=== PATIENT | female | born 1945 | race Caucasian/White ===

== ENCOUNTER 2020-04-17 04:48 | Emergency (ER) | payer OTHER ==
[2020-04-17 05:42] LABS: Absolute Lymphocytes (CBC) 1.4 K/uL (0.7-4.9); Hematocrit 33.5 % (36.0-45.0); Lymphocytes % 21.8 % (15.3-44.8); MPV 9.5 fL (7.6-11.3); RBC Red Blood Cell Count 3.53 M/uL (3.86-4.86)
[2020-04-17 05:45] LABS: Protime INR 1.05
[2020-04-17 06:47] LABS: ALT/SGPT 42 U/L (12-78); AST/SGOT 17 U/L (15-37); Albumin 3.4 g/dL (3.4-5.0); Alkaline Phosphatase 88 U/L (45-117); BUN Blood Urea Nitrogen 10 mg/dL (7-18); Bicarbonate 20 mmol/L (21-32); Bilirubin Direct < 0.1 mg/dL (0-0.2); Bilirubin Total 0.3 mg/dL (0.2-1.0); C-Reactive Protein 5.92 mg/L (<3.00); Ferritin 114.9 ng/mL (8-388); Glucose Level 99 mg/dL (74-106); Lipase 33 U/L (73-393); Potassium 3.6 mmol/L (3.5-5.1); Protein, Total 6.8 g/dL (6.4-8.2); Sodium Level 142 mmol/L (136-145); Troponin (Emerg Dept Use Only) 0.02 ng/mL (0.0-0.045)
--- NOTE | 2020-04-17 09:01 | RAD REPORT ---
EXAM DESCRIPTION: Tammie Single View04/17/2020 5:34 am CLINICAL HISTORY: Cough COMPARISON: none FINDINGS: Lungs are mildly hyperaerated Mild appearing interstitial lung opacities probably chronic Heart is mildly enlarged. Blunting of the costophrenic sulci may indicate small pleural effusions or pleural thickening
--- NOTE | 2020-04-17 09:05 | ER ---
Nurse's Notes [facility] Name: Dulce Maria He Age: 74 yrs Sex: Female : 1945 Arrival Date: 04/17/2020 Time: 04:48 Bed 4 Private MD: Diagnosis: Dyspnea;Other specified heart block-third degree Presentation: 04/17 05:24 Chief complaint: Patient states: "for a week now I have had shortness of breath with jd3 exertion along with my heart rate that has been in the 40s and even dropped to 39 once. It only happens when I try to get up and move, but when I do, I get a heaviness in my chest and I get short of breath. Coronavirus screen: Surgical mask placed on patient. Patient moved to private room, placed in contact and droplet isolation with eye protection until further assessment. Patient denies a cough. Patient reports shortness of breath or difficulty breathing. Patient denies measured and/or subjective temperature greater than 100.4F prior to today's visit. Patient denies travel on a cruise ship or to a country the [facility] currently lists as an affected area. Patient denies contact with known and/or suspected case of COVID-19. Ebola Screen: Patient negative for fever greater than or equal to 101.5 degrees Fahrenheit, and additional compatible Ebola Virus Disease symptoms. Initial Sepsis Screen: Does the patient meet any 2 criteria? No. Patient's initial sepsis screen is negative. Does the patient have a suspected source of infection? No. Patient's initial sepsis screen is negative. Risk Assessment: Do you want to hurt yourself or someone else? Patient reports no desire to harm self or others. Onset of symptoms was April 10, 2020. 05:24 Method Of Arrival: Wheelchair jd3 05:24 Acuity: ARINA 2 jd3 Historical: - Allergies: 05:29 No Known Allergies; jd3 - Home Meds: 05:29 Prilosec Oral [Active]; jd3 - PMHx: 05:29 GERD; jd3 - PSHx: 05:29 None; jd3 - Immunization history:: Adult Immunizations unknown. - Social history:: Smoking status: Patient denies any tobacco usage or history of. Screenin:32 Abuse screen: Denies threats or abuse. Nutritional screening: No deficits noted. jd3 Tuberculosis screening: No symptoms or risk factors identified. Fall Risk IV access (20 points). Ambulatory Aid- None/Bed Rest/Nurse Assist (0 pts). Gait- Weak (10 pts.). Mental Status- Oriented to own ability (0 pts). Total Medina Fall Scale indicates Low Risk Score (25-44 pts). Fall prevention measures have been instituted. Side Rails Up X 2 Placed close to Nursing Station Frequent Obs/Assesments occuring. Assessment: 05:28 Reassessment: Kelle (Sister) [phone]. ea 05:31 General: Appears in no apparent distress. comfortable, Behavior is calm, cooperative, jd3 appropriate for age. Pain: Denies pain. Neuro: Level of Consciousness is awake, alert, obeys commands, Oriented to person, place, time, situation. Cardiovascular: Reports shortness of breath, Denies chest pain, Capillary refill < 3 seconds Patient's skin is warm and dry. Rhythm is sinus bradycardia. Respiratory: Reports shortness of breath on exertion Airway is patent Respiratory effort is even, unlabored, Respiratory pattern is regular, symmetrical, Denies cough. GI: No signs and/or symptoms were reported involving the gastrointestinal system. Patient currently denies constipation, diarrhea, nausea, vomiting. : No signs and/or symptoms were reported regarding the genitourinary system. EENT: No signs and/or symptoms were reported regarding the EENT system. Derm: Skin is intact, Skin is dry, Skin is normal, Skin temperature is warm. Musculoskeletal: Circulation, motion, and sensation intact. Range of motion: intact in all extremities. 06:16 Reassessment: Patient appears in no apparent distress at this time. Patient and/or mg2 family updated on plan of care and expected duration. Pain level reassessed. Patient is alert, oriented x 3, equal unlabored respirations, skin warm/dry/pink. 08:04 Reassessment: Patient appears in no apparent distress at this time. Patient and/or ph family updated on plan of care and expected duration. Pain level reassessed. Patient is alert, oriented x 3, equal unlabored respirations, skin warm/dry/pink. Licensed Journeyman Electrician at bedside to speak w/ pt, pt to be transferred for possible pacemaker placement, pt c/o dry mouth. 09:11 Reassessment: Patient appears in no apparent distress at this time. Patient and/or ph family updated on plan of care and expected duration. Pain level reassessed. Patient is alert, oriented x 3, equal unlabored respirations, skin warm/dry/pink. 10:15 Reassessment: Patient appears in no apparent distress at this time. Patient and/or ph family updated on plan of care and expected duration. Pain level reassessed. Patient is alert, oriented x 3, equal unlabored respirations, skin warm/dry/pink. Report given to Mary Alice EMT-P, pt transferred by EMS to [facility]. Vital Signs: 05:29 BP 101 / 80; Pulse 41; Resp 18 S; Temp 97.6(O); Pulse Ox 99% on R/A; Weight 65.77 kg jd3 (R); Height 5 ft. 6 in. (167.64 cm) (R); Pain 0/10; 06:16 BP 158 / 52; Pulse 40; Resp 18; Pulse Ox 100% on R/A; mg2 07:27 BP 165 / 52; Pulse 40; Pulse Ox 96% on R/A; hb 08:05 BP 164 / 54; Pulse 38; Resp 18; Pulse Ox 98% on R/A; ph 09:12 BP 148 / 86; Pulse 38; Resp 18; Pulse Ox 98% on R/A; ph 10:16 BP 151 / 68; Pulse 37; Resp 18; Temp 97.8; Pulse Ox 97% on R/A; ph 05:29 Body Mass Index 23.40 (65.77 kg, 167.64 cm) jd3 ED Course: 04:48 Patient arrived in ED. ds1 04:51 Amrit Ahuja MD is Attending Physician. tw4 04:54 Jose Tate RN is Primary Nurse. jd3 05:25 Inserted saline lock: 20 gauge in right wrist, using aseptic technique. Blood jd3 collected. placed by Manav CAPPS. 05:28 Triage completed. jd3 05:30 Arm band placed on. EKG completed in triage. Results shown to . jd3 05:33 Patient has correct armband on for positive identification. Placed in gown. Bed in low jd3 position. Call light in reach. Side rails up X2. branch store manager on. Pulse ox on. NIBP on. 05:34 CXR XRAY In Process Unspecified. EDMS 08:07 No provider procedures requiring assistance completed. Patient transferred, IV remains ph in place. 08:09 transfer initiated with [facility]. em1 08:31 Transfer attempted with [facility] by Dr. Pillai with no success. em1 08:38 Attending Physician role handed off by Amrit Ahuja MD cha 08:38 Martinez Pillai MD is Attending Physician. [facility] Administered Medications: No medications were administered Outcome: 09:05 ER care complete, transfer ordered by . [facility] 10:17 Transferred by ground EMS [place]. to [facility], Transfer form ph completed. X-rays sent w/ patient. 10:17 Condition: stable 10:18 Patient left the ED. Signatures: Dispatcher [employer] EDCO Martinez Pillai MD MD cha WeberAnia ds1 Babatunde, Clinton em1 Maribel Dash RN RN ph Baxter, Heather RN Belen Maynard RN RN ea Davies, Jonathon, RN RN jd3 Wadley, Terrence, MD MD tw4 Manav Martinez RN RN mg2 Corrections: (The following items were deleted from the chart) 05:29 05:24 Onset of symptoms was April 17, 2020 [email or web address]
--- NOTE | 2020-04-17 09:05 | EDPHYS ---
Physician Documentation [facility] Name: Dulce Maria He Age: 74 yrs Sex: Female : 1945 Arrival Date: 04/17/2020 Time: 04:48 Bed 4 Private MD: ED Physician Martinez Pillai HPI: 04/17 08:04 This 74 yrs old Female presents to ER via Wheelchair with complaints of tw4 Shortness Of Breath, Irregular Pulse. 08:04 The patient has shortness of breath with light activity. Duration: The symptoms are tw4 continuous, and are steadily getting worse. The patient's shortness of breath is aggravated by exertion. Associated signs and symptoms: The patient has no apparent associated signs or symptoms. Severity of symptoms: At their worst the symptoms were moderate in the emergency department the symptoms have resolved. yesterday, The patient has not experienced similar symptoms in the past. 08:05 Onset: The symptoms/episode began/occurred yesterday. tw4 Historical: - Allergies: 05:29 No Known Allergies; jd3 - Home Meds: 05:29 Prilosec Oral [Active]; jd3 - PMHx: 05:29 GERD; jd3 - PSHx: 05:29 None; jd3 - Immunization history:: Adult Immunizations unknown. - Social history:: Smoking status: Patient denies any tobacco usage or history of. ROS: 08:05 Constitutional: Negative for fever, chills, and weight loss, Eyes: Negative for injury, tw4 pain, redness, and discharge, Cardiovascular: Negative for chest pain, palpitations, and edema, Abdomen/GI: Negative for abdominal pain, nausea, vomiting, diarrhea, and constipation, Back: Negative for injury and pain, MS/Extremity: Negative for injury and deformity, Skin: Negative for injury, rash, and discoloration, Neuro: Negative for headache, weakness, numbness, tingling, and seizure. 08:05 Respiratory: Positive for dyspnea on exertion, shortness of breath, Negative for cough, hemoptysis, orthopnea, pleurisy, wheezing. Exam: 08:05 Constitutional: This is a well developed, well nourished patient who is awake, alert, tw4 and in no acute distress. Head/Face: Normocephalic, atraumatic. Chest/axilla: Normal chest wall appearance and motion. Nontender with no deformity. No lesions are appreciated. 08:05 Respiratory: Lungs have equal breath sounds bilaterally, clear to auscultation and percussion. No rales, rhonchi or wheezes noted. No increased work of breathing, no retractions or nasal flaring. Abdomen/GI: Soft, non-tender, with normal bowel sounds. No distension or tympany. No guarding or rebound. No evidence of tenderness throughout. Back: No spinal tenderness. No costovertebral tenderness. Full range of motion. Skin: Warm, dry with normal turgor. Normal color with no rashes, no lesions, and no evidence of cellulitis. MS/ Extremity: Pulses equal, no cyanosis. Neurovascular intact. Full, normal range of motion. Neuro: Awake and alert, GCS 15, oriented to person, place, time, and situation. Cranial nerves II-XII grossly intact. Motor strength 5/5 in all extremities. Sensory grossly intact. Cerebellar exam normal. Normal gait. 08:05 Cardiovascular: Rate: bradycardic, actual rate is 38 bpm, Rhythm: regular. Vital Signs: 05:29 BP 101 / 80; Pulse 41; Resp 18 S; Temp 97.6(O); Pulse Ox 99% on R/A; Weight 65.77 kg jd3 (R); Height 5 ft. 6 in. (167.64 cm) (R); Pain 0/10; 06:16 BP 158 / 52; Pulse 40; Resp 18; Pulse Ox 100% on R/A; mg2 07:27 BP 165 / 52; Pulse 40; Pulse Ox 96% on R/A; hb 08:05 BP 164 / 54; Pulse 38; Resp 18; Pulse Ox 98% on R/A; ph 09:12 BP 148 / 86; Pulse 38; Resp 18; Pulse Ox 98% on R/A; ph 10:16 BP 151 / 68; Pulse 37; Resp 18; Temp 97.8; Pulse Ox 97% on R/A; ph 05:29 Body Mass Index 23.40 (65.77 kg, 167.64 cm) jd3 MDM: 04:51 Patient medically screened. tw4 08:52 Differential diagnosis: Anemia CHF exacerbation, Myocardial Infarction pulmonary edema, yoana Unstable Angina. Antibiotic administration: Not indicated. The patient's Wells Deep Vein Thrombosis Score was calculated as follows: Total Score: 0-2 Pts- Low Risk. The patient's pulmonary embolism risk score was calculated as follows: Total Score: 0-2 points. This patient was found to be at low risk for a pulmonary embolism by using the Well's assessment criteria. Immunization status: Pneumococcal vaccine: Influenza vaccine: Data reviewed: vital signs, nurses notes, lab test result(s), EKG, radiologic studies, plain films. Data interpreted: tie sawyer: rate is 38 beats/min, Pulse oximetry: on room air is 98 %. Test interpretation: by ED physician or midlevel provider: ECG, plain radiologic studies. Physician consultation: David Lal MD after a discussion of the case, a recommendation for transfer for higher level of care is made. ED course: patient stable, blood pressure 164/54, alert and oriented x4. 04/17 04:53 Order name: Blood Culture Adult (2) 04/17 04:53 Order name: BMP; Complete Time: 07:23 04/17 07:23 Interpretation: Normal except: CL 113; GFR 70; CO2 20. 04/17 04:53 Order name: C-Reactive Protein; Complete Time: 07:23 04/17 07:23 Interpretation: Normal except: C-REACTIVE PROT 5.92. 04/17 04:53 Order name: CBC with Diff; Complete Time: 07:23 04/17 07:23 Interpretation: Normal except: RBC 3.53; HGB 11.4; HCT 33.5. 04/17 04:53 Order name: COVID-19 04/17 04:53 Order name: Ferritin; Complete Time: 07:23 04/17 07:24 Interpretation: Within normal limits: ABY 114.9. 04/17 04:53 Order name: Flu; Complete Time: 07:23 04/17 07:24 Interpretation: Within normal limits. 04/17 04:53 Order name: Lactate; Complete Time: 07:23 04/17 07:25 Interpretation: Within normal limits: LAC 1.3. 04/17 04:53 Order name: LFT's; Complete Time: 07:23 04/17 07:24 Interpretation: Normal except: A/G 1.0. 04/17 04:53 Order name: Lipase; Complete Time: 07:23 04/17 07:24 Interpretation: Normal except: LIP 33. 04/17 04:53 Order name: Procalcitonin; Complete Time: 07:23 04/17 07:25 Interpretation: Within normal limits: Procalcitonin < 0.05. 04/17 04:53 Order name: PT-INR; Complete Time: 07:23 04/17 07:25 Interpretation: Within normal limits: PT 12.4. 04/17 04:53 Order name: Ptt, Activated; Complete Time: 07:23 04/17 07:25 Interpretation: Within normal limits: PTT 34.4. 04/17 04:53 Order name: Strep; Complete Time: 07:23 04/17 07:25 Interpretation: Within normal limits. 04/17 04:53 Order name: Troponin (emerg Dept Use Only); Complete Time: 07:23 04/17 07:25 Interpretation: Within normal limits: TROPED 0.02. 04/17 04:53 Order name: CXR XRAY; Complete Time: 09:17 04/17 04:53 Order name: EKG; Complete Time: 04:54 04/17 04:53 Order name: Cardiac monitoring; Complete Time: 05:24 04/17 04:53 Order name: Document PUI#; Complete Time: 05:24 04/17 04:53 Order name: Droplet/Contact Precautions; Complete Time: 04:56 04/17 04:53 Order name: EKG - Nurse/Tech; Complete Time: 05:24 04/17 04:53 Order name: IV Start; Complete Time: 05:24 04/17 04:53 Order name: Labs collected and sent; Complete Time: 05:24 04/17 04:53 Order name: Notify Health Dept [phone]/ ; Complete Time: 04:56 04/17 04:53 Order name: O2 Per Protocol; Complete Time: 04:56 04/17 04:53 Order name: O2 Sat Monitoring; Complete Time: 04:56 04/17 04:54 Order name: Blood Culture EDMS 04/17 05:57 Order name: Throat Culture [facility] 04/17 09:54 Order name: NPO; Complete Time: 10:02 [facility] EC:15 Rate is 40 beats/min. Rhythm is regular. QRS Homer is Normal. DC interval is normal. QRS tw4 interval is normal. QT interval is normal. No Q waves. T waves are Normal. No ST changes noted. Clinical impression: Sinus bradycardia. Interpreted by me. Reviewed by me. 08:05 Rate is 38 beats/min. Rhythm is regular. QRS Homer is Normal. DC interval is prolonged. tw4 QRS interval is normal. QT interval is normal. No Q waves. T waves are Normal. No ST changes noted. Clinical impression: 3rd degree heart block. Interpreted by me. Reviewed by me. Administered Medications: No medications were administered Disposition: 04/17/20 09:05 Transfer ordered to Other Acute Care Facility. Diagnosis are Dyspnea, Other specified heart block - third degree. - Reason for transfer: Higher level of care. - Accepting physician is cardio ccu. - Condition is Fair. - Problem is new. - Symptoms have improved. Signatures: Dispatcher [employer] Martinez Montanez MD MD cha Hall, Patricia, RN RN Jose Pressley RN RN Amrit Ibarra MD MD tw4 Corrections: (The following items were deleted from the chart) 05:43 04:53 Maloney ordered. tw4 jd3 10:18 09:05 04/17/2020 09:05 Transfer ordered to Other Acute Care Facility. Diagnosis is ph Dyspnea; Other specified heart block - third degree. Reason for transfer: Higher level of care. Accepting physician is cardio ccu. Condition is Fair. Problem is new. Symptoms have improved. yoana
[2020-04-17 10:29] VITALS: BP 151/68; TEMP 97.8; O2SAT 97
--- NOTE | 2020-04-17 19:58 | CON ---
Date of Consultation: 04/17/2020 Reason For Consultation: Heart block and shortness of breath. History Of Present Illness: A 74-year-old female with no medical history, presented with shortness o f breath that has been worsening over the past week with low energy, is not able to walk in from room to room without shortness of breath. No orthopnea. No extremity edema. No chest pain. No other c omplaints. Past Medical History: None. Medications: None. Allergies: NO KNOWN DRUG ALLERGIES. Social History: Does not smoke or drink. Does not use drugs. Family History: No premature coronary artery disease or cancer. Review of Systems: All systems reviewed were negative except for mentioned in the HPI. Physical Examination: Vital Signs: Temperature is 97.8, heart rate 37, breathing 18, blood pressure is 148/86, saturating 98% on room air. General: Pleasant elderly female, in no apparent distress. Head and Neck: Pupils are equal, react to light. Intact eye movements. No JVD. No cervical lympha denopathy. Neck supple. Thyroid is not enlarged. Lungs: Clear to auscultation bilaterally. No rhonchi, rales, crackles. No accessory muscle use. Heart: Regular rate and rhythm. No extra sounds. Abdomen: Soft, nontender. Bowel sounds positive. No organomegaly. No masses or hernia. No rigidi ty or rebound. Extremities: No edema, clubbing, cyanosis. Intact pulses. Skin: No rash noted. Neurologic: Alert, awake, oriented x3. No acute focal deficits appreciated. Investigations: EKG showed complete heart block with a rate of 37 and with exertion heart rate would not improve. Labs otherwise was reviewed. Assessment And Recommendation: Third-degree complete heart block, likely responsible for her symptom s. She is hemodynamically stable. No need for transcutaneous pacing. However, recommend transfer t [facility] for evaluation for permanent pacemaker implantation. Obtain echocardiogram and serial sets of cardiac enzymes. I appreciate the courtesy of this consultation. /SAVANNAH Voice ID: [id number] Report ID: [id number]
== END 2020-04-17 10:18 ==
LOC: ER 04:48
DX: I44.2 Atrioventricular block, complete (principal); R06.00 Dyspnea, unspecified; K21.9 Gastro-esophageal reflux disease without esophagitis; Z11.59 Encounter for screening for other viral diseases
CPT/HCPCS: 93005 ×2; 87040 ×2; 87070; 85025; 80048; 36415; 85610; 80076; 87081; 83605; 85730; 84484; 82728; 83690; 84145; 86140; 87804 ×2; 71045; 99285; U0002

== ENCOUNTER 2024-12-09 03:22 | Inpatient (IN) | payer OTHER ==
[2024-12-09] MEDS ORDERED: ALBUTEROL 2.5 MG/3 ML NEB SOL ONE ×3 (03:36→06:01)
[2024-12-09] MEDS ORDERED: IPRATROPIUM BROM 0.5MG/2.5ML ONE ×4 (03:36→14:17)
[2024-12-09 04:15] LABS: D-Dimer 0.826 FEUug/mL (0-0.500); PT Prothrombin Time 11.7 SECONDS (10.0-13.0); PTT, Activated Partial Thromb 31.2 SECONDS (24.3-36.9); Protime INR 1.03
[2024-12-09 04:21] LABS: ALT/SGPT 17 U/L (13-56); Absolute Basophils 0.1 K/uL (0-0.5); Absolute Eosinophils 0.5 K/uL (0-0.5); Absolute Lymphocytes (CBC) 1.5 K/uL (0.7-4.9); Absolute Monocytes 1.1 K/uL (0.1-1.3); Absolute Neutrophil 8.6 K/uL (1.8-8.0); Albumin 3.7 g/dL (3.4-5.0); Albumin/Globulin Ratio 0.9 (1.1-1.8); Alkaline Phosphatase 99 U/L (45-117); BUN Blood Urea Nitrogen 11 mg/dL (7-18); Basophils % 0.8 % (0-1.3); Bicarbonate 25 mEq/L (21-32); Bilirubin Total 0.3 mg/dL (0.2-1.0); Creatine Phosphokinase 91 U/L (26-192); Eosinophils % 3.9 % (0-4.4); Globulin 4.1 g/dL (2.3-3.5); Glomerular Filtration Rate 89 ml/min (=/>90); Glucose Level 105 mg/dL (74-106); Hematocrit 39.9 % (36.0-45.0); Hemoglobin 13.5 g/dL (12.0-15.0); Lipase 17 U/L (13-75); Lymphocytes % 12.6 % (15.3-44.8); MCH 31.8 pg (27.0-35.0); MCHC 33.9 g/dL (32.0-36.0); MCV 93.9 fL (80-100); MPV 7.5 fL (7.6-11.3); Magnesium 1.9 mg/dL (1.6-2.4); Monocytes % 9.1 % (3.3-12.3); NT PRO-BNP 152 pg/mL (<450); Neutrophils % 73.6 % (41.7-73.7); Nucleated Red Blood Cells % 0.1 % (0-0); Platelets 334 thou/uL (152-406); Protein, Total 7.8 g/dL (6.4-8.2); RBC Red Blood Cell Count 4.25 M/uL (3.86-4.86); Red Cell Distribution Width 13.4 % (12.1-15.2); Sodium Level 136 mEq/L (136-145); Troponin High Sensitivity 10.3 pg/mL (<58.9)
[2024-12-09 04:25] LABS: Blood O2 Saturation 91.5 % (92-98.5)
[2024-12-09 04:25] LABS: AST/SGOT < 10 U/L (15-37); Bilirubin Direct < 0.2 mg/dL (0-0.2); Bilirubin Indirect, Calculated 0.1 mg/dL (0.2-0.8)
[2024-12-09 04:26] LABS: Arterial Blood Carboxyhemoglob 1.1 % (0-1.5); Blood Gas Oxyhemoglobin 88.8 % (94-97); Blood Gas THB 13.8 g/dl (12-18)
[2024-12-09] MEDS ORDERED: METHYLPREDNISOLONE 125 MG INJ ONE (04:26)
[2024-12-09] MEDS ORDERED: Magnesium Sulfate 2gm IVPB 2 G/50 ML BAG IV ONE (04:26)
[2024-12-09] MEDS ORDERED: GUAIFENESIN/DM 5 ML UCUP ONE (04:26)
--- NOTE | 2024-12-09 05:46 | RAD REPORT ---
EXAM: XR Chest, 1 View CLINICAL HISTORY: The patient is 79 years old and is Female; DYSPNEA TECHNIQUE: Frontal view of the chest. COMPARISON: No relevant prior studies available. FINDINGS: Lungs: Peribronchial thickening. Hazy opacification of the medial right lung base. Left basilar a telectasis. Pleural space: Unremarkable. No pneumothorax. Heart: Unremarkable. Mediastinum: Unremarkable. Normal mediastinal contour. Bones/joints: No acute findings. Tubes, lines and devices: Left-sided pacemaker. IMPRESSION: Peribronchial thickening. Hazy opacification of the medial right lung base. Left basilar atelectasi s. Electronically signed by: Casey Hudson MD 12/09/2024 05:13 AM [facility] 8 Due to temporary technical issues with the PACS/[employer] [place] reporting system, reports are being jolynn d by the in-house radiologist without review as a courtesy to ensure prompt reporting the interpreting radiologist is fully responsible for the content of the report. Transcribed Date/Time: 12/09/2024 5:46 AM
[2024-12-09 05:49] LABS: Influenza A Ag Negative; Influenza B Ag Negative; SARS-CoV-2 Antigen Rapid Res Negative (Negative)
[2024-12-09] MEDS ORDERED: GUAIFENESIN/CODEINE 5ML UCUP ONE (06:02)
--- NOTE | 2024-12-09 07:29 | EDPHYS ---
Physician Documentation [facility] Name: Dulce Maria He Age: 79 yrs Sex: Female : 1945 Arrival Date: 12/09/2024 Time: 03:22 Bed 7 Private MD: ED Physician Koffi Pavon HPI: 12/09 03:40 This 79 yrs old Female presents to ER via Unassigned with complaints of sp4 Shortness Of Breath. 07:18 Patient is a very pleasant 79-year-old female comes in with worsening shortness of sp4 breath and wheezing.. Historical: - Allergies: 03:46 No Known Allergies; vc1 - PMHx: 03:46 GERD; hiatel hernia (GERD); vc1 - PSHx: 03:46 Pacer; vc1 - Immunization history:: Client reports receiving the 2nd dose of the Covid vaccine, Flu vaccine is up to date. - Infectious Disease History:: Denies. - Social history:: Smoking status: Patient denies any tobacco usage or history of. - Family history:: not pertinent. ROS: 07:18 Constitutional: Negative for fever, chills, and weight loss, positive dyspnea, positive sp4 wheezing, positive cough 07:18 All other systems are negative, Exam: 07:18 Constitutional: This is a well developed, well nourished patient who is awake, alert, sp4 ill-appearing but nontoxic Head/Face: Normocephalic, atraumatic. Eyes: Pupils equal round and reactive to light, extra-ocular motions intact. Lids and lashes normal. Conjunctiva and sclera are not injected. Cornea within normal limits. Periorbital areas with no swelling, redness, or edema. ENT: Nares patent. No nasal discharge, no septal abnormalities noted. Tympanic membranes are normal and external auditory canals are clear. Oropharynx with no redness, swelling, or masses, exudates, or evidence of obstruction, uvula midline. Mucous membranes moist. Neck: Trachea midline, no thyromegaly or masses palpated, and no cervical lymphadenopathy. Supple, full range of motion without nuchal rigidity, or vertebral point tenderness. Chest/axilla: Normal chest wall appearance and motion. Nontender with no deformity. No lesions are appreciated. Cardiovascular: Regular rate and rhythm with a normal S1 and S2. No gallops, murmurs, or rubs. Normal PMI, no JVD. No pulse deficits. Respiratory: Lungs have equal breath sounds bilaterally, bilateral expiratory wheezing, bilateral inspiratory wheezing, dyspnea and tachypnea Abdomen/GI: Soft, with normal bowel sounds. No distension or tympany. No guarding or rebound. No evidence of tenderness throughout. Back: No spinal tenderness. No costovertebral tenderness. Skin: Warm, dry with normal turgor. Normal color with no rashes, no lesions, and no evidence of cellulitis. MS/ Extremity: Pulses equal, no cyanosis. Neurovascular intact. Full, normal range of motion. Neuro: Awake and alert, GCS 15, oriented to person, place, time, and situation. Cranial nerves II-XII grossly intact. Motor strength 5/5 in all extremities. Sensory grossly intact. Psych: Awake, alert, with orientation to person, place and time. Behavior, mood, and affect are within normal limits 07:18 ECG was reviewed by the Attending Phys[place] 0403 paced rhythm rate 107 periodic PVCs Vital Signs: 03:43 BP 178 / 80; Pulse 107; Resp 16; Temp 98.2; Pulse Ox 89% on R/A; Weight 59.5 kg; Height vc1 5 ft. 3 in. ; Pain 0/10; 04:00 BP 151 / 75; Pulse 104; Resp 22; Pulse Ox 94% on R/A; al5 04:30 BP 164 / 77; Pulse 102; Resp 22; Pulse Ox 93% on R/A; al5 05:00 BP 134 / 64; Pulse 101; Resp 18; Pulse Ox 98% on 2 lpm NC; al5 05:30 BP 144 / 60; Pulse 96; Resp 18; Pulse Ox 96% on 2 lpm NC; al5 06:00 BP 149 / 59; Pulse 94; Resp 18; Pulse Ox 96% on R/A; al5 06:30 BP 147 / 55; Pulse 103; Resp 20; Pulse Ox 100% on R/A; al5 08:30 BP 127 / 55; Pulse 98; Resp 16; Pulse Ox 100% on 2 lpm NC; db 09:00 BP 134 / 63; Pulse 109; Resp 20; Pulse Ox 95% on R/A; db 03:43 Body Mass Index 23.24 (59.50 kg, 160.02 cm) vc1 03:43 Pain Scale: Adult vc1 Rg Coma Score: 07:18 Eye Response: spontaneous(4). Motor Response: obeys commands(6). Verbal Response: sp4 oriented(5). Total: 15. MDM: 03:42 Medical Screening Exam initiated sp4 07:25 Differential diagnosis: Anemia Anxiety Reaction asthma, Bronchitis CHF exacerbation, sp4 Chronic Obstructive Pulmonary Disease pneumonia, Pneumothorax. Data reviewed: vital signs, nurses notes, lab test result(s), EKG, radiologic studies, CT scan, plain films. Consideration of Admission/Observation Patient was admitted/placed on observation. Escalation of care including admission/observation considered. Management of patient was discussed with the following: Hospitalist: Admit Team . ED course: Patient stable for admission at this time.. ED course: EXAM: XR Chest, 1 View CLINICAL HISTORY: The patient is 79 years old and is Female; DYSPNEA TECHNIQUE: Frontal view of the chest. COMPARISON: No relevant prior studies available. FINDINGS: Lungs: Peribronchial thickening. Hazy opacification of the medial right lung base. Left basilar atelectasis. Pleural space: Unremarkable. No pneumothorax. Heart: Unremarkable. Mediastinum: Unremarkable. Normal mediastinal contour. Bones/joints: No acute findings. Tubes, lines and devices: Left-sided pacemaker. IMPRESSION: Peribronchial thickening. Hazy opacification of the medial right lung base. Left basilar atelectasis.. 12/09 03:42 Order name: BMP; Complete Time: 06:29 sp4 12/09 03:42 Order name: Blood Culture Adult (2) sp4 12/09 03:42 Order name: CBC with Diff; Complete Time: 06:29 sp4 12/09 03:42 Order name: CPK; Complete Time: 06:29 sp4 12/09 03:42 Order name: D-Dimer; Complete Time: 06:29 sp4 12/09 03:42 Order name: Hepatic Function; Complete Time: 06:29 sp4 12/09 03:42 Order name: Lipase; Complete Time: 06:29 sp4 12/09 03:42 Order name: Magnesium; Complete Time: 06:29 sp4 12/09 03:42 Order name: NT PRO-BNP; Complete Time: 06:29 sp4 12/09 03:42 Order name: PT-INR; Complete Time: 06:29 sp4 12/09 03:42 Order name: Ptt, Activated; Complete Time: 06:29 sp4 12/09 03:42 Order name: Troponin HS; Complete Time: 06:29 sp4 12/09 03:42 Order name: ABG; Complete Time: 06:29 sp4 12/09 04:34 Order name: Lactate w/ 2H reflex if indic.; Complete Time: 06:29 sp4 12/09 04:34 Order name: COVID-19 Ag + Flu A+B Ag; Complete Time: 06:29 sp4 12/09 05:45 Order name: Ghost Lactate-NO COLLECT Timer EDMS 12/09 08:20 Order name: Basic Metabolic Panel EDMS 12/09 08:20 Order name: Basic Metabolic Panel EDMS 12/09 08:20 Order name: Basic Metabolic Panel EDMS 12/09 08:20 Order name: Basic Metabolic Panel EDMS 12/09 08:20 Order name: Basic Metabolic Panel EDMS / 08:20 Order name: Basic Metabolic Panel EDMS / 08:20 Order name: Basic Metabolic Panel EDMS 12/09 08:20 Order name: Basic Metabolic Panel EDMS / 08:20 Order name: CBC with Automated Diff EDMS 03/06 08:20 Order name: CBC with Automated Diff EDMS 03/06 08:20 Order name: Urinalysis w/ reflexes EDMS 03/06 08:21 Order name: CBC with Automated Diff EDMS 03/06 08:21 Order name: CBC with Automated Diff EDMS 03/06 08:21 Order name: CBC with Automated Diff EDMS 03/06 08:21 Order name: CBC with Automated Diff EDMS 03/06 08:21 Order name: CBC with Automated Diff EDMS 03/06 08:21 Order name: CBC with Automated Diff EDMS 03/06 08:21 Order name: Magnesium EDMS 03/06 08:21 Order name: Magnesium EDMS 03/06 08:21 Order name: Magnesium EDMS 03/06 08:21 Order name: Magnesium EDMS 03/06 08:21 Order name: Magnesium EDMS 03/06 08:21 Order name: Magnesium EDMS 03/06 08:21 Order name: Magnesium EDMS 03/06 08:21 Order name: Magnesium EDMS 03/06 08:21 Order name: Phosphorus EDMS 03/06 08:21 Order name: Phosphorus EDMS 03/06 08:21 Order name: Phosphorus EDMS 03/06 08:21 Order name: Phosphorus EDMS 03/06 08:21 Order name: Phosphorus EDMS 03/06 08:21 Order name: Phosphorus EDMS 03/06 08:21 Order name: Phosphorus EDMS 03/06 08:21 Order name: Phosphorus EDMS 03/ 09:31 Order name: Lactate Sepsis 2 HR Follow-up EDMS 12/09 03:42 Order name: XRAY CXR (1 view) sp4 12/09 06:39 Order name: CT Chest For PE Angio sp4 12/09 03:42 Order name: Call RT; Complete Time: 04:08 sp4 12/09 03:42 Order name: Cardiac monitoring; Complete Time: 04:08 sp4 12/09 03:42 Order name: EKG - Nurse/Tech; Complete Time: 04:08 sp4 12/09 03:42 Order name: IV Saline Lock; Complete Time: 03:55 sp4 12/09 03:42 Order name: Labs collected and sent; Complete Time: 03:55 sp4 12/09 03:42 Order name: O2 Per Protocol; Complete Time: 03:55 sp4 12/09 03:42 Order name: O2 Sat Monitoring; Complete Time: 03:55 sp4 EC:03 Rate is 107 beats/min. Rhythm is regular, Paced. Clinical impression: No evidence of sp4 ischemia. Interpreted by me. Reviewed by me. Administered Medications: 03:49 Drug: Albuterol Inhalation 2.5 mg Inhalation every 20 minutes x3 Route: Inhalation; vc1 03:49 Drug: Ipratropium Inhalation Aerosol 0.5 mg Inhalation once; Every 20 min for a total vc1 of 3 treatments x3 Route: Inhalation; 04:44 Drug: Albuterol Inhalation 2.5 mg Inhalation every 20 minutes x3 Route: Inhalation; al5 04:44 Drug: Ipratropium Inhalation Aerosol 0.5 mg Inhalation once; Every 20 min for a total al5 of 3 treatments x3 Route: Inhalation; 04:44 Drug: MethylPrednisoLONE IVP 125 mg IVP once Route: IVP; Site: right forearm; al5 06:03 Follow up: Response: No adverse reaction al5 04:44 Drug: Magnesium Sulfate IVPB 2 grams IVPB once over 2 hrs Route: IVPB; Infused Over: 2 al5 hrs; Site: right forearm; 04:44 Drug: Dextromethorphan-Guaifenesin PO Liquid 10 mg-100 mg/5 mL 10 ml PO once Route: PO; al5 06:02 Follow up: Response: No adverse reaction; No change in condition al5 06:03 Drug: Albuterol Inhalation 2.5 mg Inhalation every 20 minutes x3 Route: Inhalation; al5 06:03 Drug: Ipratropium Inhalation Aerosol 0.5 mg Inhalation once; Every 20 min for a total al5 of 3 treatments x3 Route: Inhalation; 06:03 Drug: Codeine-Guaifenesin PO Liquid (10 mg-100 mg/5 mL) 10 ml PO once Route: PO; al5 08:00 Drug: Rocephin - Rocephin (cefTRIAXone) IVPB 1 grams IVPB once over 30 mins; (mix in 50 db mL NS) Route: IVPB; Infused Over: 30 mins; Site: right forearm; 10:06 Follow up: Response: No adverse reaction; IV Status: Completed infusion db 08:00 Drug: Zithromax IVPB 500 mg IVPB once over 1 hrs; mix in 250 mL NS Route: IVPB; Infused db Over: 1 hrs; Site: right forearm; 09:00 Follow up: Response: No adverse reaction; IV Status: Completed infusion; IV Intake: db 250ml 08:00 Drug: Potassium PO Effervescent Tablet 50 mEq PO once; dissolve in 4 ounces of water or db juice Route: PO; 10:21 Follow up: Response: No adverse reaction db Disposition Summary: 12/09/24 07:28 Hospitalization Ordered Notes: Hospitalization Status: Inpatient Admission sp4 Provider: Micheal Calvert spIsabella Condition: Stable sp4 Problem: new sp4 Symptoms: have improved sp4 Bed/Room Type: Standard sp4 Location: Telemetry/MedSurg (observation)(12/09/24 13:29) 6 Room Assignment: [facility](12/09/24 13:29) 6 Diagnosis - Other pneumonia, unspecified organism sp4 - Acute bilateral expiratory wheezing, acute respiratory distress, desaturation, sp4 right lower lung pneumonia - Hypokalemia sp4 Forms: - Medication Reconciliation Form sp4 - SBAR form sp4 - Leadership Thank You Letter sp4 Signatures: Dispatcher [employer] EDMS Shanthi Munoz, RN RN vc1 Vilma Ferrell, RN RN kb3 Torri White, RN RN db Dea Tellez bc6 Koffi Pavon MD MD sp4 Francia Concepcion, RN RN al5 Corrections: (The following items were deleted from the chart) 03:43 03:42 BASIC METABOLIC PANEL+C.LAB.BRZ ordered. EDMS EDMS 03:43 03:42 BLOOD CULTURE*+BA.LAB.BRZ ordered. EDMS EDMS 03:43 03:42 CBC+H.LAB.BRZ ordered. EDMS EDMS 03:43 03:42 CREATINE PHOSPHOKINASE+C.LAB.BRZ ordered. EDMS EDMS 03:43 03:42 D-DIMER+COAG.LAB.BRZ ordered. EDMS EDMS 03:43 03:42 HEPATIC FUNCTION+C.LAB.BRZ ordered. EDMS EDMS 03:43 03:42 LIPASE+C.LAB.BRZ ordered. EDMS EDMS 03:43 03:42 MAGNESIUM+C.LAB.BRZ ordered. EDMS EDMS 03:43 03:42 PROBNP+C.LAB.BRZ ordered. EDMS EDMS 03:43 03:43 PROTIME (+INR)+COAG.LAB.BRZ ordered. EDMS EDMS 03:43 03:43 PTT, ACTIVATED+COAG.LAB.BRZ ordered. EDMS EDMS 03:43 03:43 Troponin High Sensitivity+C.LAB.BRZ ordered. EDMS EDMS 03:43 03:43 Chest Single View+RAD.RAD.BRZ ordered. EDMS EDMS 03:43 03:43 Arterial Blood Gas+RC.LAB.BRZ ordered. EDMS EDMS 08:31 07:28 Telemetry/MedSurg (Inpatient) sp4 kb3 08:31 07:28 sp4 kb3 13:29 08:31 [facility] ER HOLD kb3 bc6 13:29 08:31 ERHOLD- kb3 bc6
--- NOTE | 2024-12-09 07:29 | ER ---
Nurse's Notes [facility] Name: Ducle Maria He Age: 79 yrs Sex: Female : 1945 Arrival Date: 12/09/2024 Time: 03:22 Bed 7 Private MD: Diagnosis: Other pneumonia, unspecified organism;Acute bilateral expiratory wheezing, acute respiratory distress, desaturation, right lower lung pneumonia;Hypokalemia Presentation: 12/09 03:43 Chief complaint: Patient states: Shortness of breath and cough times one week. vc1 Coronavirus screen: Client denies travel out of the [place] in the last 14 days. cough unrelated to allergies, difficulty breathing, shortness of breath, Client presents with at least one sign or symptom that may indicate coronavirus-19. Ebola Screen: Patient negative for fever greater than or equal to 101.5 degrees Fahrenheit, and additional compatible Ebola Virus Disease symptoms Patient denies exposure to infectious person. Patient denies travel to an Ebola-affected area in the 21 days before illness onset. No symptoms or risks identified at this time. Initial Sepsis Screen: Does the patient meet any 2 criteria? No. Patient's initial sepsis screen is negative. Does the patient have a suspected source of infection? No. Patient's initial sepsis screen is negative. Risk Assessment: Do you want to hurt yourself or someone else? Patient reports no desire to harm self or others. Onset of symptoms is unknown. Care prior to arrival: None. Activity prior to arrival: None. Mechanism of Injury: No Mechanism of Injury. Transition of care: patient was not received from another setting of care. 03:43 Method Of Arrival: Ambulatory vc1 03:43 Acuity: ARINA 2 vc1 Triage Assessment: 03:47 General: Appears distressed, uncomfortable, slender, well groomed, well developed, well vc1 nourished, Behavior is cooperative. Pain: Denies pain. EENT: No deficits noted. No signs and/or symptoms were reported regarding the EENT system. Neuro: Level of Consciousness is awake, alert, obeys commands, Oriented to person, place, time, situation, Appropriate for age. Cardiovascular: Reports shortness of breath, Denies chest pain, Heart tones S1 S2 present Capillary refill < 3 seconds Patient's skin is warm and dry. Rhythm is sinus tachycardia. Respiratory: Reports shortness of breath at rest cough that is labored breathing Breath sounds with wheezes bilaterally. Onset: The symptoms/episode began/occurred 1 week, the patient has moderate shortness of breath. GI: No deficits noted. No signs and/or symptoms were reported involving the gastrointestinal system. : No deficits noted. No signs and/or symptoms were reported regarding the genitourinary system. Derm: Skin is intact, is healthy with good turgor, Skin is dry, Skin is normal, Skin temperature is warm. Musculoskeletal: Circulation, motion, and sensation intact. Range of motion: intact in all extremities. Historical: - Allergies: 03:46 No Known Allergies; vc1 - PMHx: 03:46 GERD; hiatel hernia (GERD); vc1 - PSHx: 03:46 Pacer; vc1 - Immunization history:: Client reports receiving the 2nd dose of the Covid vaccine, Flu vaccine is up to date. - Infectious Disease History:: Denies. - Social history:: Smoking status: Patient denies any tobacco usage or history of. - Family history:: not pertinent. Screenin:49 [facility] ED Fall Risk Assessment (Adult) History of falling in the last 3 months, vc1 including since admission No falls in past 3 months (0 pts) Confusion or Disorientation No (0 pts) Intoxicated or Sedated No (0 pts) Impaired Gait No (0 pts) Mobility Assist Device Used No (0 pt) Altered Elimination No (0 pt) Score/Fall Risk Level 0 - 2 = Low Risk Oriented to surroundings, Maintained a safe environment, Educated pt \T\ family on fall prevention, incl call for assistance when getting out of bed. Abuse screen: Denies threats or abuse. Nutritional screening: No deficits noted. Tuberculosis screening: No symptoms or risk factors identified. Assessment: 03:56 General: Appears in no apparent distress. uncomfortable, slender, well groomed, al5 Behavior is cooperative. Pain: Denies pain. Neuro: Level of Consciousness is awake, alert, obeys commands, Oriented to person, place, time, situation. Cardiovascular: Capillary refill < 3 seconds Patient's skin is warm and dry. Cardiovascular: Rhythm is sinus tachycardia. Respiratory: Reports shortness of breath cough that is Airway is patent Respiratory effort is even, labored, Respiratory pattern is regular, symmetrical. GI: No signs and/or symptoms were reported involving the gastrointestinal system. : No signs and/or symptoms were reported regarding the genitourinary system. EENT: No signs and/or symptoms were reported regarding the EENT system. Derm: Skin is intact, Skin is pink, warm \T\ dry. normal. Musculoskeletal: No signs and/or symptoms reported regarding the musculoskeletal system. 04:57 Reassessment: Patient appears in no apparent distress at this time. Patient and/or al5 family updated on plan of care and expected duration. Pain level reassessed. Patient is alert, oriented x 3, equal unlabored respirations, skin warm/dry/pink. shortness of breath has decreased. 09:14 Reassessment: Patient appears in no apparent distress at this time. Patient and/or db family updated on plan of care and expected duration. Pain level reassessed. Patient is alert, oriented x 3, equal unlabored respirations, skin warm/dry/pink. PT REMOVED FROM O2 AFTER BREATHING TREATMENT BY RT. PATIENT IN NAD Patient states feeling better. Patient states symptoms have improved. Vital Signs: 03:43 BP 178 / 80; Pulse 107; Resp 16; Temp 98.2; Pulse Ox 89% on R/A; Weight 59.5 kg; Height vc1 5 ft. 3 in. ; Pain 0/10; 04:00 BP 151 / 75; Pulse 104; Resp 22; Pulse Ox 94% on R/A; al5 04:30 BP 164 / 77; Pulse 102; Resp 22; Pulse Ox 93% on R/A; al5 05:00 BP 134 / 64; Pulse 101; Resp 18; Pulse Ox 98% on 2 lpm NC; al5 05:30 BP 144 / 60; Pulse 96; Resp 18; Pulse Ox 96% on 2 lpm NC; al5 06:00 BP 149 / 59; Pulse 94; Resp 18; Pulse Ox 96% on R/A; al5 06:30 BP 147 / 55; Pulse 103; Resp 20; Pulse Ox 100% on R/A; al5 08:30 BP 127 / 55; Pulse 98; Resp 16; Pulse Ox 100% on 2 lpm NC; db 09:00 BP 134 / 63; Pulse 109; Resp 20; Pulse Ox 95% on R/A; db 03:43 Body Mass Index 23.24 (59.50 kg, 160.02 cm) vc1 03:43 Pain Scale: Adult vc1 Rg Coma Score: 07:18 Eye Response: spontaneous(4). Motor Response: obeys commands(6). Verbal Response: sp4 oriented(5). Total: 15. ED Course: 03:31 Patient arrived in ED. gm2 03:40 Koffi Pavon MD is Attending Physician. sp4 03:46 Triage completed. vc1 03:48 Arm band placed on right wrist. vc1 03:49 Patient has correct armband on for positive identification. Bed in low position. Call vc1 light in reach. Provided Education on: call light. supervisor partial denture department on. Pulse ox on. NIBP on. 03:55 Francia Concepcion, JEFRY is Primary Nurse. al5 03:55 No provider procedures requiring assistance completed. Inserted saline lock: 20 gauge al5 in right forearm, using aseptic technique. Blood collected. Flushed with 10 mL NS. 04:14 XRAY CXR (1 view) In Process Unspecified. EDMS 07:03 CT Chest For PE Angio In Process Unspecified. EDMS 07:27 Micheal Calvert is Hospitalizing Provider. sp4 13:31 Patient admitted, IV remains in place. bp Administered Medications: 03:49 Drug: Albuterol Inhalation 2.5 mg Inhalation every 20 minutes x3 Route: Inhalation; vc1 03:49 Drug: Ipratropium Inhalation Aerosol 0.5 mg Inhalation once; Every 20 min for a total vc1 of 3 treatments x3 Route: Inhalation; 04:44 Drug: Albuterol Inhalation 2.5 mg Inhalation every 20 minutes x3 Route: Inhalation; al5 04:44 Drug: Ipratropium Inhalation Aerosol 0.5 mg Inhalation once; Every 20 min for a total al5 of 3 treatments x3 Route: Inhalation; 04:44 Drug: MethylPrednisoLONE IVP 125 mg IVP once Route: IVP; Site: right forearm; al5 06:03 Follow up: Response: No adverse reaction al5 04:44 Drug: Magnesium Sulfate IVPB 2 grams IVPB once over 2 hrs Route: IVPB; Infused Over: 2 al5 hrs; Site: right forearm; 04:44 Drug: Dextromethorphan-Guaifenesin PO Liquid 10 mg-100 mg/5 mL 10 ml PO once Route: PO; al5 06:02 Follow up: Response: No adverse reaction; No change in condition al5 06:03 Drug: Albuterol Inhalation 2.5 mg Inhalation every 20 minutes x3 Route: Inhalation; al5 06:03 Drug: Ipratropium Inhalation Aerosol 0.5 mg Inhalation once; Every 20 min for a total al5 of 3 treatments x3 Route: Inhalation; 06:03 Drug: Codeine-Guaifenesin PO Liquid (10 mg-100 mg/5 mL) 10 ml PO once Route: PO; al5 08:00 Drug: Rocephin - Rocephin (cefTRIAXone) IVPB 1 grams IVPB once over 30 mins; (mix in 50 db mL NS) Route: IVPB; Infused Over: 30 mins; Site: right forearm; 10:06 Follow up: Response: No adverse reaction; IV Status: Completed infusion db 08:00 Drug: Zithromax IVPB 500 mg IVPB once over 1 hrs; mix in 250 mL NS Route: IVPB; Infused db Over: 1 hrs; Site: right forearm; 09:00 Follow up: Response: No adverse reaction; IV Status: Completed infusion; IV Intake: db 250ml 08:00 Drug: Potassium PO Effervescent Tablet 50 mEq PO once; dissolve in 4 ounces of water or db juice Route: PO; 10:21 Follow up: Response: No adverse reaction db Medication: 03:50 VIS not applicable for this client. vc1 Intake: 09:00 IV: 250ml; Total: 250ml. db Outcome: 07:28 Decision to Hospitalize by Provider. sp4 13:31 Admitted to ER Hold. Please see [facility] for further documentation. bp 13:31 Condition: stable 13:31 Instructed on the need for admit, 15:21 Patient left the ED. bp Signatures: Dispatcher [employer] EDMS Mahesh Cardoso RN RN bp Shanthi Munoz RN RN vc1 Torri White RN RN Koffi Chopra MD MD sp4 Donita Paredes gm2 Francia Concepcion RN RN al5
--- NOTE | 2024-12-09 07:33 | RAD REPORT ---
EXAMINATION: CTA CHEST PE CLINICAL INDICATION: Chest pain TECHNIQUE: 100 cc 370 Isovue administered intravenously. This examination was performed according to an angiographic protocol with 3D post-processing. This involves 3D reconstructions, MIPs, volume rendered images and/or shaded surface rendering. One or more of the following dose reduction techniqu es were used: Automated exposure control, adjustment of the mA and/or kV according to patient size, and/or iterative reconstruction. Unless otherwise specified, incidental findings do not require dedic ated imaging follow-up. [id number]. COMPARISON: No prior exam. FINDINGS: A pulmonary embolus is not seen. An aortic aneurysm not noted. No pleural effusion. No pericardial effusion. Calcified granulomas within the lungs. Mild left lower lobe atelectasis. Mild peribronchial thickenin g Pacemaker/defibrillator in place IMPRESSION: No evidence of a pulmonary embolism
[2024-12-09] MEDS ORDERED: CEFTRIAXONE 1000 MG/VIAL ONE (07:54)
[2024-12-09] MEDS ORDERED: AZITHROMYCIN 500 MG INJ IVPB ONE (07:54)
[2024-12-09] MEDS ORDERED: POTASSIUM 25 MEQ EFFERV TAB ONE (07:54)
[2024-12-09] MEDS ORDERED: NA CHLORIDE 0.9% 250 ML ONE (07:55)
[2024-12-09] MEDS: AZITHROMYCIN IV 500 MG in NA CHLORIDE 0.9% 250 ML IVPB SCH (08:00)
[2024-12-09] MEDS: LEVALBUTEROL 1.25 MG/3 ML NEB NEB SCH (09:00)
[2024-12-09] MEDS: IPRATROPIUM BROM 0.5MG/2.5ML NEB SCH (09:00)
[2024-12-09] MEDS: NA CHLORIDE 0.9% 1,000 ML IV SCH ×2 (09:00→12:44)
[2024-12-09] MEDS ORDERED: NA CHLORIDE 0.9% 1,000 ML ONE (10:00)
[2024-12-09 10:11] VITALS: BMI 23.2
[2024-12-09 10:42] VITALS: O2SAT 94
[2024-12-09] MEDS ORDERED: CHLORASEPTIC LOZENGES ONE (12:55)
[2024-12-09] MEDS: CHLORASEPTIC LOZENGES PO SCH (13:20)
[2024-12-09] MEDS ORDERED: LEVALBUTEROL 1.25 MG/3 ML NEB ONE (14:18)
--- NOTE | 2024-12-09 15:27 | P.HP ---
Certification for Inpatient Patient admitted to: Inpatient With expected LOS: >2 Midnights Practitioner: I am a practitioner with admitting privileges, knowledge of patient current condition, hospital course, and medical plan of care. Services: Services provided to patient in accordance with Admission requirements found in Title 42 Section 412.3 of the Code of Federal Regulations Patient History Date of Service: 12/09/24 Reason for admission: RLL PNA History of Present Illness: Dulce Maria He is an 79 year old female with pmhx GERD, hiatal hernia, bradycardia (pacemaker) who presents to the ED with a cough and wheezing. She reports having a cough from seasonal allergies but noticed it was causing difficulty breathing on exertion and at rest. She reports that she is not on medication and only sees the pacemaker distributor for pacemaker interrogation yearly. On evaluation, she is on 3 LNC, rhonchi noted, vitals stable. Laboratory evaluation significant for WBC 11.7, potassium 3.0, lactic acid 2.2, flu and COVID-negative CTA chest reports "No evidence of a pulmonary embolism" Chest x-ray reports "Peribronchial thickening. Hazy opacification of the medial right lung base. Left basilar atelectasi" Dulce Maria will be admitted to the hospitalist service for further evaluation and treatment of RLL PNA. Allergies No Known Allergies Allergy (Unverified 11/24/17 11:36) Home Medications: Omeprazole Magnesium [Prilosec Otc] 20 mg PO DAILY 12/09/24 - Past Medical/Surgical History Has patient received pneumonia vaccine in the past: No -: Bradycardia -: GERD -: Hiatal hernia -: Pacemaker - Social History Smoking Status: Never smoker Alcohol use: No CD- Drugs: No Review of Systems Other: Per HPI Physical Examination - Vital Signs Temperature: 98.2 F Blood Pressure: 123/68 Pulse: 105 Respirations: 18 Pulse Ox (%): 94 - Physical Exam General: Alert, In no apparent distress, Oriented x3 HEENT: Atraumatic, Normocephalic, PERRLA Respiratory: Rhonchi/gurgles Cardiovascular: Normal pulses, Regular rate/rhythm, Normal S1 S2 Capillary refill: <2 Seconds Gastrointestinal: Normal bowel sounds, Soft and benign Musculoskeletal: No clubbing Integumentary: No rashes Neurological: Normal speech, Normal tone - Studies Laboratory Data (last 24 hrs) 0312/09/24 12/09/24 03:45 03:45 03:45 WBC 11.70 H Hgb 13.5 Hct 39.9 Plt Count 334 PT 11.7 INR 1.03 APTT 31.2 Sodium 136 Potassium 3.0 L BUN 11 Creatinine 0.65 Glucose 105 Magnesium 1.9 Total Bilirubin 0.3 AST < 10 L ALT 17 Alkaline Phosphatase 99 Lipase 17 Assessment and Plan - Plan Assessment and plan Acute hypoxic respiratory failure secondary to right lower lobe pneumonia Lactic acidosis -Chest xray reports "Peribronchial thickening. Hazy opacification of the medial right lung base. Left basilar atelectasi." -CTA chest reports "CTA chest reports "No evidence of a pulmonary embolism" -Oxygen protocol ordered -Rocephin and azithromycin daily -DuoNebs and steroids -Gentle IVF -incentive spirometry Hypokalemia -replace PRN -monitor in AM labs Bradycardia with pacemaker -continuous telemetry GERD Hiatal hernia -Continue home medicaitons DVT ppx lovenox Full code LOS 2-3 days Discharge Plan: Home Plan to discharge in: 72 Hours - Advance Directives Does patient have a Living Will: No Does patient have a Durable POA for Healthcare: No
[2024-12-09] MEDS: ENOXAPARIN 40 MG/0.4 ML SQ SCH (16:32)
[2024-12-09] MEDS: ACETAMINOPHEN 325 MG TABLET PO PRN (16:32)
[2024-12-09] MEDS: POTASSIUM CL SA 10 MEQ TAB PO ONE (18:54)
[2024-12-09] MEDS: METHYLPREDNISOLONE 40 MG INJ IV SCH (20:59)
[2024-12-10 05:21] LABS: Absolute Lymphocytes (CBC) 0.9 K/uL (0.7-4.9); Absolute Monocytes 0.5 K/uL (0.1-1.3); Absolute Neutrophil 18.1 K/uL (1.8-8.0); Basophils % 0.1 % (0-1.3); Hematocrit 35.5 % (36.0-45.0); Hemoglobin 12.1 g/dL (12.0-15.0); Lymphocytes % 4.9 % (15.3-44.8); MCHC 34.2 g/dL (32.0-36.0); MCV 93.4 fL (80-100); MPV 7.8 fL (7.6-11.3); Monocytes % 2.4 % (3.3-12.3); Neutrophils % 92.6 % (41.7-73.7); Platelets 306 thou/uL (152-406); Red Cell Distribution Width 13.5 % (12.1-15.2)
[2024-12-10 05:44] LABS: Anion Gap 11.5 mEq/L (5.0-15.0); Magnesium 2.4 mg/dL (1.6-2.4); Potassium 4.5 mEq/L (3.5-5.1)
[2024-12-10 07:29] LABS: Band Neutrophils 4 % (0-1); Blood Morphology Comment NOT SEEN (NOT SEEN); Differential Total Cells Count 100; Lymphocytes 6 % (15-42); Monocytes 1 % (0-10); Platelet Estimate ADEQ; Segmented Neutrophils 88 % (40-80)
[2024-12-10 07:58] VITALS: TEMP 97.5
[2024-12-10] MEDS: HOME MED 1 EA UNK (Omeprazole Magnesium [Prilosec Otc] 20 MG Tablet.Dr) PO SCH (09:00)
[2024-12-10] MEDS: POTASS/SODIUM PHOSPHATE 1 PKT POWD.PACK PO SCH (09:16)
[2024-12-10] MEDS: CEFTRIAXONE 1,000 MG in NA CHLORIDE 0.9% 50 ML IVPB SCH (09:16)
[2024-12-10] MEDS: PANTOPRAZOLE 40MG TABLET PO SCH (09:16)
[2024-12-10] MEDS: LACTOBACILLUS/ACIDOPHILUS TAB PO SCH (10:31)
--- NOTE | 2024-12-10 12:46 | P.DS ---
Admission Date: 12/09/24 Discharge Date: 12/10/24 Disposition: ROUTINE DISCHARGE Discharge Condition: GOOD Reason for Admission: RLL PNA Brief History of Present Illness: Diagnosis Acute hypoxic respiratory failure secondary to right lower lobe pneumonia Lactic acidosis Hypokalemia Bradycardia with pacemaker GERD Hiatal hernia HPI 12/09/2024 DulceM aria He is an 79 year old female with pmhx GERD, hiatal hernia, bradycardia (pacemaker) who presents to the ED with a cough and wheezing. She reports having a cough from seasonal allergies but noticed it was causing difficulty breathing on exertion and at rest. She reports that she is not on medication and only sees the pacemaker distributor for pacemaker interrogation yearly. On evaluation, she is on 3 LNC, rhonchi noted, vitals stable. Laboratory evaluation significant for WBC 11.7, potassium 3.0, lactic acid 2.2, flu and COVID-negative CTA chest reports "No evidence of a pulmonary embolism" Chest x-ray reports "Peribronchial thickening. Hazy opacification of the medial right lung base. Left basilar atelectasi" Dulce Maria will be admitted to the hospitalist service for further evaluation and treatment of RLL PNA. Hospital Course: Patient was admitted and treated for the following diagnosis Acute hypoxic respiratory failure secondary to right lower lobe pneumonia Lactic acidosis- resolved -Chest xray reports "Peribronchial thickening. Hazy opacification of the medial right lung base. Left basilar atelectasi." -CTA chest reports "CTA chest reports "No evidence of a pulmonary embolism" -Oxygen protocol , titrated to Room Air -tolerated Rocephin/azithromycin daily, DuoNebs, steroids, and Gentle IVF -incentive spirometry Hypokalemia-resolved -replaced PRN Bradycardia with pacemaker -continuous telemetry with no acute events GERD Hiatal hernia -Continued home medicaitons On 12/10/2024, Luisana was seen on morning rounds and deemed hemodynamically stable and safe for discharge home with family support. Prescriptions called into your pharmacy, Ceftin, prednisone, lactinex. Follow-up with your PCP for further management and monitoring. Physical Exam General: Alert and Oriented x3, NAD HEENT: Atraumatic, Normocephalic, PERRLA Respiratory: nonlabored breathing, on RA Cardiovascular: Normal pulses, RRR, Normal S1 S2 Capillary refill: <2 Seconds Gastrointestinal: Normal bowel sounds, Soft on palpation Musculoskeletal: No clubbing Integumentary: No rashes Neurological: Normal speech, Normal tone Vital Signs/Physical Exam: Temp Pulse Resp BP Pulse Ox 97.5 F 83 18 131/57 L 93 12/10/24 11:26 12/10/24 11:26 12/10/24 07:56 12/10/24 11:26 12/10/24 11:26 Laboratory Data at Discharge: WBC 19.50 thou/uL (4.3-10.9) H 12/10/24 04:51 Hgb 12.1 g/dL (12.0-15.0) D 12/10/24 04:51 Hct 35.5 % (36.0-45.0) L 12/10/24 04:51 Plt Count 306 thou/uL (152-406) 12/10/24 04:51 PT 11.7 SECONDS (10.0-13.0) 12/09/24 03:45 INR 1.03 12/09/24 03:45 APTT 31.2 SECONDS (24.3-36.9) 12/09/24 03:45 Sodium 138 mEq/L (136-145) 12/10/24 04:51 Potassium 4.5 mEq/L (3.5-5.1) D 12/10/24 04:51 BUN 14 mg/dL (7-18) 12/10/24 04:51 Creatinine 0.64 mg/dL (0.55-1.02) 12/10/24 04:51 Glucose 148 mg/dL (74-106) H 12/10/24 04:51 Phosphorus 2.0 mg/dL (2.5-4.9) L 12/10/24 04:51 Magnesium 2.4 mg/dL (1.6-2.4) 12/10/24 04:51 Total Bilirubin 0.3 mg/dL (0.2-1.0) 12/09/24 03:45 AST < 10 U/L (15-37) L 12/09/24 03:45 ALT 17 U/L (13-56) 12/09/24 03:45 Alkaline Phosphatase 99 U/L (45-117) 12/09/24 03:45 Lipase 17 U/L (13-75) 12/09/24 03:45 Home Medications: Omeprazole Magnesium [Prilosec Otc] 20 mg PO DAILY 12/09/24 Acidophilus/Bulgaricus [Lactinex Tablet Chewable] 1 each PO DAILY 20 Days #20 tab.chew 12/10/24 Cefuroxime [Ceftin] 500 mg PO BID 10 Days #20 tab 12/10/24 predniSONE [Prednisone] 20 mg PO DAILY 5 Days #5 tab 12/10/24 New Medications: Cefuroxime [Ceftin] 500 mg PO BID 10 Days #20 tab Acidophilus/Bulgaricus [Lactinex Tablet Chewable] 1 each PO DAILY 20 Days #20 tab.chew predniSONE [Prednisone] 20 mg PO DAILY 5 Days #5 tab Physician Discharge Instructions: 1. Please call and schedule a follow-up appointment with your PCP in 3-5 days - Please follow-up with your PCP for medication refills/adjustments 2. Continue diet 3. No activity restrictions 4. Return to the ED if symptoms worsen New medications Ceftin 500 mg twice daily x 10 days Lactinex 1 tablet daily x 20 days Prednisone 20 mg daily x 5 days Diet: AHA Activity: Fall precautions Followup: NONE,NONE [Primary Care Provider] -
[2024-12-10 17:01] VITALS: BP 130/59
--- NOTE | 2024-12-14 11:24 | EKG ---
Test Date: 2024-12-09 Test Time: 04:03:26 Machine Operations Supervisor: BARBI MEASUREMENT RESULTS: Intervals: Rate: 107 MS: 142 QRSD: 170 QT: 396 QTc: 528 Ledbetter: P: 62 MS: 142 QRS: -60 T: 101 INTERPRETIVE STATEMENTS: Atrial-sensed ventricular-paced rhythm with occasional premature ventricular complexes Abnormal ECG Compared to ECG 04/17/2020 07:36:53 Ventricular premature complex(es) now present Sinus rhythm no longer present AV block, complete (third-degree) no longer present Myocardial infarct finding no longer present Electronically Signed On 12-14-24 11:07:12 CDT by Kalia Morgan
== END 2024-12-10 18:11 | disposition home or self-care (01) | DRG 193 ==
LOC: ER 03:22 → ERHOLD 08:16 → 4TH 14:36
PROVIDERS: ADMIT Internal Medicine; ATTEND Internal Medicine
DX: J18.9 Pneumonia, unspecified organism (principal); J96.01 Acute respiratory failure with hypoxia; E87.20 Acidosis, unspecified; E87.6 Hypokalemia; K21.9 Gastro-esophageal reflux disease without esophagitis; K44.9 Diaphragmatic hernia without obstruction or gangrene; R00.1 Bradycardia, unspecified; Z11.52 Encounter for screening for COVID-19; Z95.0 Presence of cardiac pacemaker; Z79.899 Other long term (current) drug therapy
CPT/HCPCS: 36415; 71045; 71275; 80048; 80076; 82550; 82805; 83605; 83690; 83735; 83880; 84100; 84484; 85025; 85379; 85610; 85730; 87040; 87428; 93005; 94010; 96365; 96366; 96368; 96375; 99285; J0696; J1650; J2919; J3475; J7030; J7050; J7613; J7614; J7644; Q9967